=== PATIENT | male | born 1945 | race Hispanic/Latino ===

== ENCOUNTER → 2018-06-28 | Outpatient (CLI) | payer MEDICARE ==
[~2018-06-28] MED LIST: ADVAIR 100-501 EACH INH; FLONASE INH; LEVAQUIN500 MG PO; LISINOPRIL10 MG PO; LYCOPENE10 MG PO; NAPROXEN; OMEPRAZOLE40 MG PO
--- NOTE | 2018-06-28 15:33 | Diagnostic Imaging Report ---
PROCEDURE:SHOULDER COMPLETE BILATERAL TECHNIQUE:Bilateral shoulder radiographs, internal and external rotation views. INDICATION:Bilateral shoulder pain COMPARISON:None. FINDINGS: No fractures or dislocations. Mild degenerative changes of the glenohumeral and acromioclavicular joints. Soft tissues are unremarkable. Visualized portions of the lungs are grossly clear. CONCLUSION: No acute radiographic abnormalities. Dictated by: Abdoul Mcconnell M.D. on 06/28/2018 at 15:39 Electronically approved by: Abdoul Mcconnell M.D. on 06/28/2018 at 15:39
--- NOTE | 2018-06-28 15:54 | Diagnostic Imaging Report ---
TECHNIQUE: Magnetic resonance imaging of the LEFT SHOULDER was performed WITHOUT injected contrast. COMPARISON: None available. HISTORY: Left shoulder pain FINDINGS: MUSCLES AND TENDONS: Rotator Cuff: Tendons: Rotator cuff tendinosis with thickening and intermediate signal. No high-grade rotator cuff tear. Articular sided fraying. Muscles: No focal muscle atrophy. Biceps Tendon: The long head of the biceps tendon is intact and within the intertubercular groove. GLENOHUMERAL JOINT: Glenoid Labrum: Superior labral fraying. Articular Cartilage: Partial-thickness cartilage loss AC JOINT AND ACROMION: Moderate hypertrophic degenerative changes of the acromioclavicular joint. Subacromial spurring. BONE: No acute fracture. SOFT TISSUES: Subacromial subdeltoid bursal fluid. IMPRESSION: Severe supraspinatus and infraspinatus tendinosis without high-grade tear. Subacromial spur with subacromial subdeltoid bursal fluid, may reflect bursitis. Mild glenohumeral and acromioclavicular arthrosis. Signed by: Dr. Laith Bobo M.D. on 06/28/2018 3:50 PM
== END ==
LOC: MRI 13:52
PROVIDERS: ATTEND Family Medicine
DX: M75.112 Incomplete rotator cuff tear or rupture of left shoulder, not specified as traumatic (principal); M75.111 Incomplete rotator cuff tear or rupture of right shoulder, not specified as traumatic